=== PATIENT | male | born 1975 | race Caucasian/White ===

== ENCOUNTER 2016-06-25 06:12 | Emergency (ER) | payer SELFPAY ==
[2016-06-25 06:18] VITALS: BP 124/70; BMI 29.4
--- NOTE | 2016-06-25 06:51 | DR.GENAD ---
HPI - PCP Primary Care Physician: WAYNE - HPI Comment HPI Comment: HISTORY BELOW. - Complaint/Symptoms Chief Complaint Doctors Comments: PAIN LOWER BACK RADIATING TO GROIN AND LEGS. CHRONIC, WORSE SINCE YESTERDAY. CONCERN PAIN IN GROIN COULD BE HERNIA. NO HISTORY OF HERNIA. NO PREVIOUS SWELLING IN GROIN AREA. DENIES DYSURIA. NO FEVER. Chief Complaint:: PT C/O HERNIA IN RT GROIN PAIN IN LOWER BACK - Nurses notes reviewed Nurses Notes Review: Yes - Source History Provided: Patient - Mode of Arrival Mode of Arrival: Ambulatory - Timing Onset of Chief Complaint: 06/24/16 Came on: Gradually - Duration Duration: Constant Duration: Days - Severity Severity: Moderate PMH - PMH Past Medical History: No Past Surgical History: No - Family History History of Family Medical Conditions: No - Social History Type of Tobacco Use: Cigarettes Does any household member use tobacco: No Alcohol Use: None Do you use any recreational Drugs:: No Lives With: Family Lives Where: Home - infectious screening In the last 2 months have you had wt loss of >10#?: NO Have you had fever, night sweats or hemotysis?: No Have you traveled outside the country in the last 6 months?: No Isolation: Standard ROS - Review of Systems Constitutional: Weakness, Fatigue Eyes: No Symptoms Reported ENTM: No Symptoms Reported Respiratoy: No Symptoms Reported Cardiovascular: No Symptoms Reported Gastrointestinal/Abdominal: No Symptoms Reported Genitourinary: Pain (GROINS) Neurological: Tingling, Weakness Musculoskeletal: Back Pain (LOWER BACK) Integumentary: No Symptoms Reported Hematologic/Lymphatic: No Symptoms Reported Endocrine: No Symptoms Reported PE - Vital Signs Vitals: Temperature 98.6 F Pulse Rate 89 Respiratory Rate 18 Blood Pressure 124/70 O2 Sat by Pulse Oximetry 97 - General Limitations: No Limitations General Appearance: Alert - Head Head Exam: Normal Inspection - Eyes Eye exam: Normal Appearance - ENT ENT Exam: Normal External Ear Exam External Ear Exam: Normal External Inspection TM/Canal Exam: Bilateral Normal Nose Exam: Normal Nose Exam Mouth Exam: Normal Inspection Throat Exam: Normal Inspection - Neck Neck Exam: Normal Inspection - Chest Chest Inspection: Symmetric Chest Wall Rise - Respiratory Respiratory Exam: Normal Lung Sounds Bilat Respiratory Exam: Bilateral Clear to Auscultation - Cardiovascular Cardiovascular Exam: Regular Rate, Normal Rhythm, Normal Heart Sounds - Abdominal Exam Abdominal Exam: Normal Bowel Sounds, Soft. negative: Tenderness - Extremities Extremities Exam: Normal Inspection - Back Back Exam: Paraspinal Tenderness, Vertebral Tenderness (LOWER SPINE) - Neurologic Neurological Exam: Alert, Oriented X3 - Psychiatric Psychiatric Exam: Normal Affect, Normal Mood - Skin Skin Exam: Erythema MDM - Differential Diagnosis Differential Diagnosis: LOWER BACK, BILATERAL GROIN PAIN Course - Treatment Treatment: SEE ORDERS. IM TORADOL AND NORFLEX IN ED. - Education/Counseling Education/Counseling: Patient, Education Educated On: Treatment, Diagnosis, Needs for Follow Up - Diagnosis Discharge Problem: Lumbosacral strain, Sciatica, Bilateral groin pain - Discharge Plan Condition: Stable Prescriptions: Cyclobenzaprine HCl [FLEXERIL 10 MG *] 10 mg PO TID #20 tab Gabapentin [Neurontin Cap 100 mg] 100 mg PO BID #10 cap Ibuprofen [MOTRIN TAB 600 MG *] 600 mg PO TID PRN #20 tab PRN Reason: Pain/Inflammation - Follow ups/Referrals Follow ups/Referrals: NFD,None [Primary Care Provider] - 3 days - Instructions Instructions: Lumbosacral Strain, Lumbosacral Radiculopathy, Sciatica, Groin Strain Additional Instructions: RETURN TO ED IF WORSE.
[2016-06-25] MEDS ORDERED: NORFLEX INJ IM ONE (07:00)
[2016-06-25] MEDS ORDERED: TORADOL 60 MG VIAL IM ONE (07:00)
[2016-06-25] MEDS ORDERED: TORADOL 60 MG VIAL ONE (07:04)
[2016-06-25] MEDS ORDERED: NORFLEX INJ ONE (07:04)
== END 2016-06-25 07:52 | disposition home or self-care (01) ==
LOC: ER 06:24
DX: S39.012A Strain of muscle, fascia and tendon of lower back, initial encounter (principal)
CPT/HCPCS: 96372; 99282; J1885; J2360